=== PATIENT | female | born 1930 | race Caucasian/White ===

== ENCOUNTER 2017-11-18 06:55 | Inpatient (IN) | payer OTHER ==
[2017-11-11 13:55] VITALS: BMI 18.6
--- NOTE | 2017-11-17 10:55 | HP ---
[facility] - Chief Complaint Chief Complaint: right hip pain - Past Medical History Allergies/Adverse Reactions: Allergies Allergy/AdvReac Type Severity Reaction Status Date / Time No Known Allergies Allergy Verified 11/11/17 13:54 - Current Medications Current Medications: Home Medications Medication Instructions Recorded Cyproheptadine HCl 4 mg PO DAILY 11/11/17 Ferrous Sulfate [Iron] 325 mg PO DAILY 11/11/17 Meloxicam 15 mg PO DAILY 11/11/17 Verapamil HCl [Verapamil ER] 180 mg PO HS 11/11/17 [facility] Physical Exam - Physical Examination General Appearance: Well Nourished, Well Developed, Alert & Oriented x3 ENT: Clear Lung: Normal air movement Heart: Regular rate & rhythm Extremities: Other (right hip- + ttp, decr rom, nvi xrays show grade 4 djd) Neurological: Intact, Alert, Oriented Satellite Impression/Plan - Impression/Plan Impression: right hip djd Operative Procedure: right huey thr Date to be Performed: 11/18/17
[2017-11-18] MEDS ORDERED: CELECOXIB 200 MG CAPSULE PO ONE (07:09)
[2017-11-18] MEDS ORDERED: GABAPENTIN 300 MG CAPSULE (FP) PO ONE (07:09)
[2017-11-18] MEDS ORDERED: TRANEXAMIC ACID 1000 MG/10 ML VIAL IVPUSH ONE (07:09)
[2017-11-18] MEDS ORDERED: CEFAZOLIN 1 GM/D5W 1 GM/50 ML BAG IVPB ONE (07:09)
[2017-11-18] MEDS ORDERED: GABAPENTIN 300 MG CAPSULE (FP) ONE (07:11)
[2017-11-18] MEDS ORDERED: CELECOXIB 200 MG CAPSULE ONE (07:11)
[2017-11-18] MEDS ORDERED: VANCOMYCIN 1,000 MG VIAL (RESTRICTED TO ID ONLY) ONE (07:55)
[2017-11-18] MEDS ORDERED: ceFAZolin SODIUM 1 GM VIAL ONE ×2 (07:55→10:00)
[2017-11-18] MEDS ORDERED: MIDAZOLAM HCL 2 MG/2 ML SINGLE DOSE VIAL ONE (08:52)
[2017-11-18] MEDS ORDERED: EPINEPHrine/PF 1 MG/1 ML (1:1,000) AMPULE ONE (08:52)
[2017-11-18] MEDS ORDERED: DEXAMETHASONE SOD PHOSPHATE/PF 10 MG/ML SDV ONE (08:52)
[2017-11-18] MEDS ORDERED: LIDOCAINE 1% P/F 10 MG/ML VIAL ONE (08:53)
[2017-11-18] MEDS ORDERED: ROPIVACAINE HCL 0.5% 30ML VIAL ONE (08:53)
[2017-11-18] MEDS ORDERED: TRANEXAMIC ACID 1000 MG/10 ML VIAL ONE ×2 (10:00→10:57)
[2017-11-18] MEDS ORDERED: PROPOFOL 20 ML ONE (10:18)
[2017-11-18] MEDS ORDERED: ePHEDrine SULFATE 50 MG/1 ML AMPULE ONE (10:25)
[2017-11-18] MEDS ORDERED: MAG HYDROX/AL HYDROX/SIMETH 30 ML UNIT-DOSE CUP PO PRN (11:22)
[2017-11-18] MEDS ORDERED: ONDANSETRON 4 MG/2 ML VIAL IVPUSH PRN (11:22)
[2017-11-18] MEDS ORDERED: MAGNESIUM HYDROX 2400MG/30ML ORAL SUSPENSION 30 ML CUP PO PRN (11:22)
--- NOTE | 2017-11-18 11:24 | OP ---
Operative Note - Note: Operative Date: 11/18/17 (gurinder) Pre-Operative Diagnosis: right hip djd Operation: right huey thr Post-Operative Diagnosis: Same as Pre-op Surgeon: Jaron Chow Tearer: Mikhail Green Anesthesiologist/WHOLESALE BUYER: Tory Sun Anesthesia: Spinal, Local Specimens Removed: femoral head Estimated Blood Loss (mls): 100 Operative Report Dictated: Yes
[2017-11-18] MEDS ORDERED: LACTATED RINGERS SOLUTION 1,000 ML IV SCH (11:30)
[2017-11-18] MEDS ORDERED: oxyCODONE HCL 5 MG TABLET PO PRN ×2 (11:42)
[2017-11-18] MEDS ORDERED: ACETAMINOPHEN 325 MG TABLET (FP) ONE (12:30)
[2017-11-18] MEDS ORDERED: ACETAMINOPHEN 325 MG TABLET (FP) PO ONE (12:34)
--- NOTE | 2017-11-18 12:38 | OP ---
DATE OF OPERATION: 11/18/2017 PREOPERATIVE DIAGNOSIS: Degenerative joint disease, right hip. POSTOPERATIVE DIAGNOSIS: Degenerative joint disease, right hip. PROCEDURE: Right total hip replacement with robotic assisted navigation (Makoplasty). SURGEON: Jaron Chow MD PRODUCE LABORER: BRANDON Lane ANESTHESIA: Regional and spinal. CLOSURE: A Tritanium 54 Press-Fit acetabulum with 2 screws, an acetabular liner accepting a 36-mm head with a 10-degree lip, a No. 7 Press-Fit Accolade 2 femoral stem, and a standard 36-mm head, No. 1 Vicryl for capsule and fascia, 0 and 2-0 for subcutaneous, and 3-0 V-Lock for skin, 4-0 undyed Vicryl for pin sites. ESTIMATED BLOOD LOSS: Less than 100 mL. CONDITION: To recovery room in stable condition. DESCRIPTION OF OPERATIVE PROCEDURE: The patient was taken to the operating room on November 18, 2017. Regional and spinal anesthesia was administered by the anesthesiologist. IV Kefzol and TXA were administered prophylactically prior to the case. The patient was placed in the lateral decubitus position with all prominences well-padded. The right hip area was prepped in the usual sterile fashion. Three pins were placed through small stab incisions in between the 2 tables of the iliac crest. These pins were attached to the navigation array. Next, a posterolateral incision centered over the greater trochanter was incised. Hemostasis was achieved with Bovie cautery. Sharp dissection was carried down to the level of the fascia, which was opened the entire length of the incision, spreading the gluteus fibers in the direction of their origin. A Charnley retractor was placed in this layer. Care was taken not to repel the sciatic nerve. Short external rotators were detached off the insertion of the greater trochanteric and peeled off the capsule. A T capsulotomy was then performed. A checkpoint was placed in the trochanter. There was one placed in the inferior pole of the patella prior to the case. These points were registered prior to dislocating the hip with the navigation device. The hip was dislocated. The femoral neck was cut at the appropriate levels directed by the navigation device. Anterior repair with sterile retractors were placed around the acetabulum. Circumferential debridement of the labrum was performed. Checkpoint was malleted in the pelvis. The acetabulum was registered with the navigation device and confirmation of adequate navigation was performed by "popping the bubbles". The acetabulum was then reamed down to the appropriate level achieving good hemispherical surface. The 54 Tritanium cup was then malleted down into place achieving excellent fixation. Two screws were then placed for adjuvant fixation. An acetabular liner accepting a 36-mm head with 10-degree lip was malleted into place with the liner in the posterior superior quadrant. Next, our attention was directed to the femur. The proximal femur was prepared using a box chisel, serial broaches, and awls until a No. 7 stem achieved good wedge fit. A trial reduction with standard 36-mm head achieving equal limb lengths with bfubrb-fl-mowyyi flexion at 90 degrees of flexion with haedln-kk-ziblhy abduction and internal rotation, positive hang test, negative toe scoping, and good stability in external rotation and extension. The trial component was removed. The real component was then malleted into place. The head was cold-welded, and the hip was reduced. Range of motion stability and limb lengths was described earlier. The hip was copiously irrigated with antibiotic irrigation. Vancomycin powder was placed into the hip joint. The capsule was closed using No. 1. The fascia was closed with No. 1 Vicryl interrupted suture followed by 0 and 2-0 for subcutaneous and 3-0 V-Lock for the skin. Sterile pressure dressing was applied. The patient was placed in the supine position. Bilateral SCDs and an abduction pillow were applied. X-rays showed excellent position. The patient was transferred to the recovery room in stable condition. COMPLICATIONS: None. ESTIMATED BLOOD LOSS: Less than 100 mL. Sancho [id number]
[2017-11-18] MEDS ORDERED: ACETAMINOPHEN 1000 MG/100 ML VIAL (NON FORMULARY) IVPB ONE (13:00)
[2017-11-18] MEDS: CEFAZOLIN 1 GM/D5W 1 GRAM/50 ML BAG IVPB SCH (17:18)
[2017-11-18] MEDS ORDERED: ACETAMINOPHEN 325 MG TABLET (FP) PO PRN (18:30)
[2017-11-18] MEDS: VERAPAMIL HCL 180 MG E.R. TABLET (FP) PO SCH (21:48)
[2017-11-18] MEDS ORDERED: PT OWN MED DRAWER 7, Y5N ONE (21:48)
[2017-11-18] MEDS: SENNOSIDES/DOCUSATE COMBO (SENNA PLUS) TABLET (UD) PO SCH (21:49)
[2017-11-19] MEDS: CEFAZOLIN 1 GM/D5W 1 GRAM/50 ML BAG IVPB SCH (01:29)
[2017-11-19] MEDS: ASPIRIN 325 MG TABLET PO SCH (08:00)
[2017-11-19 08:16] LABS: HEMATOCRIT 32.2 % (32.4-45.2); HEMOGLOBIN 10.6 GM/dl (10.7-15.3); MEAN CELL VOLUME 91.1 fl (80-96); MEAN PLT VOLUME 8.8 fl (7.5-11.1); PLATELET COUNT 201 K/MM3 (134-434); RBC 3.53 M/mm3 (3.60-5.2); RDW 12.8 % (11.6-15.6); WHITE BLOOD COUNT 7.5 K/mm3 (4.0-10.8)
--- NOTE | 2017-11-19 09:51 | PN ---
Progress Note (short form) - Note Progress Note: Ortho Pt seen and examined s/p right huey thr pod #1 Selected Entries 11/19/17 05:48 Temperature 98.4 F Pulse Rate 75 Respiratory 18 Rate Blood Pressure 118/81 Laboratory Tests 11/19/17 07:30 WBC 7.5 Hgb 10.6 L Hct 32.2 L Plt Count 201 dressing c/d/i, calf soft, nt nvi a/p PT hip precautions dvt ppx pain control d/c home tomorrow if stable
[2017-11-19] MEDS ORDERED: PT OWN MED DRAWER 7, Y5N ONE (10:51)
[2017-11-19] MEDS: FERROUS SO4 325 MG TABLET (FP) PO SCH (10:58)
[2017-11-19] MEDS: MULTIVITAMINS (DAILY MVI) TABLET (FP) PO SCH (10:58)
[2017-11-19] MEDS: PANTOPRAZOLE 40 MG TABLET (FP) PO SCH (10:58)
[2017-11-19] MEDS: SENNOSIDES/DOCUSATE COMBO (SENNA PLUS) TABLET (UD) PO SCH ×2 (10:58→21:50)
[2017-11-19] MEDS: CYPROHEPTADINE HCL 4 MG TABLET PO SCH (10:59)
--- NOTE | 2017-11-19 14:25 | PN ---
Progress Note (short form) - Note Progress Note: 87F POD1 s/p right THR under spinal anesthetic with peripheral nerve blocks for post operative pain. Pt states that pain is well controlled. Pt does not report any anesthetic complications. AVSS. Sensory and motor function intact in bilateral lower extremities. Continue current regimen.
[2017-11-19] MEDS: VERAPAMIL HCL 180 MG E.R. TABLET (FP) PO SCH (23:29)
[2017-11-20 05:52] VITALS: BP 99/45; PULSE 89; TEMP 97.8
[2017-11-20] MEDS: ASPIRIN 325 MG TABLET PO SCH (07:55)
--- NOTE | 2017-11-20 08:23 | PN ---
Progress Note (short form) - Note Progress Note: Ortho Pt seen and examined s/p right huey thr pod #2 Selected Entries 11/20/17 05:50 Temperature 97.8 F Pulse Rate 89 Respiratory 20 Rate Blood Pressure 99/45 Laboratory Tests 11/20/17 07:23 WBC Pending Hgb Pending Hct Pending Plt Count Pending dressing c/d/i, calf soft, nt nvi a/p PT hip precautions dvt ppx pain control d/c home today f/u in 1 week
--- NOTE | 2017-11-20 08:23 | DS ---
Physical Examination Vital Signs: Vital Signs Temperature 97.8 F 11/20/17 05:50 Pulse Rate 89 11/20/17 05:50 Respiratory Rate 20 11/20/17 05:50 Blood Pressure 99/45 11/20/17 05:50 O2 Sat by Pulse Oximetry (%) 100 11/20/17 05:50 Discharge Summary Reason For Visit: OSTEOATHRITIS Procedures: Principal: s/p right huey thr Hospital Course: admitted for elective right huey thr, uneventful post-op, stable for d/c Condition: Good - Instructions Diet, Activity, Other Instructions: Post-op Instructions-Total Hip Replacement Call the office for a follow-up appointment in 1 week - [phone] Aspirin 325mg daily for 6 weeks. Pain medication was sent into your pharmacy. Apply Graduated Compression Stockings (TEDs) to both lower extremities- remove daily for hygiene ONLY Apply Sequential Compression Device (SCDs) to both Lower extremities remove for PT and hygiene ONLY Apply cold packs to affected area for 15 minutes every 2 hours. Physical Therapist will come to your home for the first 5 days. You will be set up with outpatient PT at your first post-operative visit. Patient may ambulate as tolerated-encourage self care (at least every 2-3 hours while awake) with walker or cane Maintain Aquacel (waterproof) dressing to operative wound (will be removed by surgeon at first office visit) Shower with Aquacel dressing in place-if Aquacel integrity compromised, remove and apply dry sterile dressing and notify Orthopedist. DO NOT SHOWER unless Orthopedists approves without Aquacel dressing CONTACT THE OFFICE FOR ANY CHANGE IN YOUR CONDITION (for example-fever greater than 102 degrees, excessive bleeding from operative site, purulent drainage, severe swelling or pain) GO TO THE EMERGENCY ROOM IF THERE IS A MEDICAL EMERGENCY Hip Precautions: * Keep a rolled towel under affected heel while in bed or chair (to keep knee in extension) * Dependent upon approach: * Posterior - do not cross legs; do not sit on low chairs or toilets. * If you have any questions, please do not hesitate to call the office - . Referrals: Jaron Chow MD [Staff Physician] - Disposition: VNS/HOME HEALTH CARE - Home Medications Comprehensive Discharge Medication List: Ambulatory Orders Cyproheptadine HCl 4 mg PO DAILY 11/11/17 Ferrous Sulfate [Iron] 325 mg PO DAILY 11/11/17 Verapamil HCl [Verapamil ER] 180 mg PO HS 11/11/17 Alendronate Na [Fosamax (Weekly)] 70 mg PO Q7D 11/18/17 Aspirin [ASA -] 325 mg PO DAILY@0800 tablet 11/18/17 Oxycodone HCl/Acetaminophen [Percocet 5-325 mg Tablet] 1 - 2 tab PO Q6H #50 tab MDD 8 11/18/17
[2017-11-20 08:37] LABS: HEMATOCRIT 31.1 % (32.4-45.2); HEMOGLOBIN 10.3 GM/dl (10.7-15.3); MCH 30.4 pg (25.7-33.7); MCHC 33.2 g/dl (32.0-36.0); MEAN CELL VOLUME 91.6 fl (80-96); MEAN PLT VOLUME 9.3 fl (7.5-11.1); PLATELET COUNT 168 K/MM3 (134-434); WHITE BLOOD COUNT 6.6 K/mm3 (4.0-10.8)
[2017-11-20] MEDS ORDERED: PT OWN MED DRAWER 7, Y5N ONE (10:50)
[2017-11-20] MEDS: SENNOSIDES/DOCUSATE COMBO (SENNA PLUS) TABLET (UD) PO SCH (10:55)
[2017-11-20] MEDS: MULTIVITAMINS (DAILY MVI) TABLET (FP) PO SCH (10:55)
[2017-11-20] MEDS: PANTOPRAZOLE 40 MG TABLET (FP) PO SCH (10:55)
[2017-11-20] MEDS: CYPROHEPTADINE HCL 4 MG TABLET PO SCH (10:55)
[2017-11-20] MEDS: FERROUS SO4 325 MG TABLET (FP) PO SCH (10:55)
--- NOTE | 2017-11-26 16:28 | PATH ---
Surgical Pathology Report Patient Name: HANK RICHARDSON Med. Rec. #: [id number] /Age/Gender: 1930 (Age: 87) / F Account: [id number] Location: [facility] Taken: 11/18/2017 Received: 11/18/2017 Reported: 11/26/2017 Physicians: Jaron Chow M.D. Specimen(s) Received RIGHT FEMORAL HEAD Clinical History Right hip osteoarthritis Final Diagnosis FEMORAL HEAD, RIGHT, TOTAL HIP REPLACEMENT: DEGENERATIVE JOINT DISEASE. Electronically Signed Prisca Sylvester M.D. Gross Description Received in formalin, labeled "right femoral head," is a 4.6 x 4.6 x 4.0 cm. femoral head with a 1.4 cm in length portion of femoral neck attached. The margin of resection is smooth. There is a 5.5 cm greatest dimension area of eburnation present. The remaining articular surface is lundberg-yellow and diffusely granular. The underlying trabecular bone is yellow and hard. A group sales representative section is submitted in one cassette, following decalcification. /11/19/[address] [facility]11/19/2017
== END 2017-11-20 11:36 | disposition home health service (06) | DRG 470 ==
LOC: FM/S 06:55
PROVIDERS: ADMIT Orthopaedic Surgery; ATTEND Orthopaedic Surgery
PROC: 8E0Y0CZ Robotic Assisted Procedure of Lower Extremity, Open Approach (ICD-10-PCS; 2017-11-18)
PROC: 0SR902Z Replacement of Right Hip Joint with Metal on Polyethylene Synthetic Substitute, Open Approach (ICD-10-PCS; principal; 2017-11-18 10:11)
DX: M16.11 Unilateral primary osteoarthritis, right hip (principal); I10 Essential (primary) hypertension; Z91.14 Patient's other noncompliance with medication regimen; Z87.891 Personal history of nicotine dependence
CPT/HCPCS: 36415; 73502-TC-RT; 85027; 88304-TC; 88311-TC; 94010; 94760; 97116-GP; 97162-GP

== ENCOUNTER 2020-05-04 17:32 | Inpatient (IN) | payer OTHER ==
[2020-05-04 18:13] VITALS: BMI 18.6
--- NOTE | 2020-05-04 18:36 | PDOC ---
History of Present Illness - General Chief Complaint: Altered Mental Status Stated Complaint: AMS Time Seen by Provider: 05/04/20 17:45 - History of Present Illness Initial Comments: Pt is a 89yo F with a PMH of HTN, hx of fall w/ICH in 2019, multiple UTIs, who presents with weakness. History was obtained from daughter as patient believes she is in hospital for seizures (Pt's daughter states that she did not have a seizure or history of seizures). Daughter states that 4 days ago, pt was more tired than usual and has since had worsening confusion and weakness. Today, she was found on the floor by granddaughter. Pt states that she purposefully laid down on the floor because it was more comfortable than the couch. Denies f/c, diaphoresis, n/v, chest pain, SOB, abdominal pain. PCP: [facility] PMH: HTN, osteoporosis PSHx: hip replacement, appendectomy Meds: verapamil, meloxicam All: NKDA tPA Exclusion Checklist 0-3hr - Time Elapsed Date last known well: 05/01/20 - Thrombolytic Therapy Candidate Is the patient eligible for Thrombolytic Therapy?: No - Ineligibility reason(s) Reasons No tPA given: Outside of window - delayed arrival, See reason(s) noted above (neuro intact) NIH Stroke Scale - Last Known Well Date/Time & Onset Date Last Known Well: 05/01/20 - Initial Evaluation Level of consciousness: Alert Ask patient the month and their age: Answers one correctly Ask patient to open & close eyes; make fist and let go: Obeys both correctly Best gaze (horizontal eye movement): Normal Visual field testing: No visual field loss Facial paresis (Show teeth/raise eyebrows/close eyes tight): Normal symmetrical movement Motor Function: Left Arm: Normal Motor Function: Right Arm: Normal (extends arm 90 (or 45) degrees for 10 seconds without drift Motor Function: Left Leg: Normal (extends leg 30 degrees for 5 seconds without drift) Motor Function: Right Leg: Normal (extends leg 30 degrees for 5 seconds without drift) Limb Ataxia: No ataxia Sensory(Use pinprick test arms,legs,trunk,face/side to side): Normal Best language (Describe picture, name items, read sentences): No Aphasia Dysarthria (read several words): Normal articulation Extinction and Inattention: No abnormality - Total Score NIH Stroke Scale Score: 1 Past History - Medical History Allergies/Adverse Reactions: Allergies Allergy/AdvReac Type Severity Reaction Status Date / Time No Known Allergies Allergy Verified 05/04/20 18:12 Home Medications: Ambulatory Orders Verapamil HCl [Verapamil ER] 180 mg PO DAILY 11/11/17 Alendronate Na [Fosamax (Weekly)] 70 mg PO Q7D 11/18/17 Meloxicam [Mobic (Nf) -] 0 mg PO DAILY PRN 05/04/20 Anemia: No Asthma: No Cancer: No Cardiac Disorders: No CVA: No COPD: No CHF: No Dementia: No Diabetes: No GI Disorders: No Disorders: No HTN: Yes Hypercholesterolemia: No Liver Disease: No Seizures: No Thyroid Disease: No - Surgical History Abdominal Surgery: Yes (OPEN- A/P) Appendectomy: Yes (OPEN) Cardiac Surgery: No Cholecystectomy: No Lung Surgery: No Neurologic Surgery: No Orthopedic Surgery: Yes (LEFT KNEE ARTHROSCOPY) - Psycho-Social/Smoking History Smoking History: Former smoker Have you smoked in the past 12 months: No If you are a former smoker, when did you quit?: 3 Review of Systems - Review of Systems Able to Perform ROS?: Yes Comments:: CONSTITUTIONAL:reports generalized weakness and loss of appetiet; denies fever, chills, diaphoresis HEENT:denies change in vision or hearing CARDIOVASCULAR:denies chest pain, syncope, lightheadedness RESPIRATORY:denies cough, shortness of breath, wheezing GASTROINTESTINAL: denies abdominal pain, nausea, vomiting, diarrhea, co nstipation, melena, hematochezia GENITOURINARY:denies dysuria, frequency, urgency, hematuria, flank pain, genital pain HEMATOLOGIC/IMMUNOLOGIC:denies easy bleeding, easy bruising ENDOCRINE: denies heat intolerance, cold intolerance NEUROLOGIC:Reports: unsteady gait, mental status changes; denies headache, loss of consciousness, dizziness, bladder or bowel incontinence *Physical Exam - Physical Exam General: AAOX3 (wrong date), in no acute distress Head: normocephalic, atraumatic Eyes: PERRL, EOMI, anicteric sclera, conjunctiva clear ENT: hearing grossly normal, Moist mucous membranes Neck: supple, normal ROM Lung: equal breath sounds b/l, CTA b/l, no crackles, wheezes; no distress, speaks full sentences Heart: irregular rhythm, tachycardic, no murmurs, rubs, gallops Abdomen: soft, non tender, normoactive bowel sounds, no guarding, rebound, masses Extremities: normal ROM, no edema, no erythema or tenderness, DP/PT pulses 2+ and symmetric, no clubbing, cyanosis Neuro: CN2-12 grossly intact, moves all extremities, normal speech, sensation intact Skin: warm, dry, no rashes or lesions noted ED Treatment Course - LABORATORY CBC & Chemistry Diagram: 05/04/20 18:00 Medical Decision Making - Medical Decision Making Ms. Bose is a 89yo F with PMH HTN, hx of fall w/ICH in 2019, hx of UTIs, who presents with weakness Vital Signs Temp Pulse Resp BP Pulse Ox 97.8 F 112 H 18 136/83 97 05/04/20 18:10 05/04/20 18:10 05/04/20 18:10 05/04/20 18:10 05/04/20 18:10 DDx: stroke, AFib, UTI, electrolyte abnormality Plan: labs, EKG, CXR, CT head and C spine, rate control EKG: Afib with RVR; HR 109, QRS 60ms CHADSVASC [address] Louis Discharge - Discharge Information Problems reviewed: Yes Clinical Impression/Diagnosis: Weakness - Follow up/Referral Referrals: Zee Purvis MD [Primary Care Provider] - - Patient Discharge Instructions - Post Discharge Activity
[2020-05-04] MEDS ORDERED: LACTATED RINGERS SOLUTION 1000 ML INFUS.BAG IV ONE (18:51)
[2020-05-04] MEDS ORDERED: dilTIAZem HCL 50 MG/10 ML - 10 ML VIAL IVPUSH ONE (19:08)
--- NOTE | 2020-05-04 19:12 | PDOC ---
*Physical Exam - Vital Signs Last Vital Signs Temp Pulse Resp BP Pulse Ox 97.8 F 112 H 18 136/83 97 05/04/20 18:10 05/04/20 18:10 05/04/20 18:10 05/04/20 18:10 05/04/20 18:10 ED Treatment Course - LABORATORY CBC & Chemistry Diagram: 05/04/20 20:49 05/04/20 18:00 - Medications Given in the ED: ED Medications Discontinued Medications Generic Name Dose Route Start Last Admin Trade Name Sae PRN Reason Stop Dose Admin Lactated Ringer's 500 ml 05/04/20 18:51 05/04/20 18:52 Lactated Ringers Solution IV 05/04/20 18:52 500 ml ONCE ONE Administration Medical Decision Making - Medical Decision Making 05/04/20 19:36 signed out from day team progressive weakness x days; NIHSS 1 found on ground; unknown LOC. [] f/u labs, imaging [] new onset afib, CHADSVASC2 = 6; 10mg IVPUSH diltiazem, f/u [] cards c/s [] admit 05/04/20 20:00 BUN 31 Cr nl 05/04/20 20:30 R sided infiltrate on CXR vs prior obtain BCX CTX, Azithro. 05/04/20 20:[address] Matthews - hold given ICH h/o, PO dilt 30mg q6h HR from 120s to 100-110 s/p diltiazem push Will give 30mg PO dilt admit Discharge - Discharge Information Problems reviewed: Yes Clinical Impression/Diagnosis: Weakness, New onset a-fib, Dizziness Condition: Guarded - Follow up/Referral - Patient Discharge Instructions - Post Discharge Activity
[2020-05-04 19:15] LABS: INR 1.06 (0.83-1.09); PROTHROMBIN TIME (PATIENT) 12.5 SEC (9.7-13.0)
--- NOTE | 2020-05-04 19:31 | PDOC ---
Documentation entered by Katrin De La Garza SCRIBE, acting as scribe for Sachi Raygoza DO. Sachi Raygoza DO: This documentation has been prepared by the paulae, Katrin De La Garza SCRIBE, under my direction and personally reviewed by me in its entirety. I confirm that the documentation accurately reflects all work, treatment, procedures, and medical decision making performed by me. 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 Per patient's mother, the patient fell last year and had a brain bleed (treated at [facility] brain trauma unit and went to [facility] for therapy) and has since then had mental statues issues. At baseline patient is alert and oriented x4. Per mother, yoel gallo does not normally sleep during the day but spent all day Friday sleeping and has been feeling week along with decrease in appetite - symptoms getting worse. Earlier today, the patient was found lying on the floor - did not fall or pass out but this prompted granddaughter to call EMS. Patient does not use a walker but mother said patient was "wobbly" yesterday. Patient denies: hitting head today, fever, chills, sweating, nausea, vomiting, neck pain, SOB, coughing, wheezing, chest pain, palpitations, back pain, abdominal pain, any urinary issues. Allergies: NKDA PCP: Dr. Zee Purvis - Physicial Exam PE: 05/04/20 19:15 GENERAL: Awake, alert, and oriented, in no acute distress HEAD: No signs of trauma EYES: PERRLA, EOMI, sclera anicteric, conjunctiva clear ENT: +Dry mucous membranes. Auricles normal inspection, hearing grossly normal, nares patent, oropharynx clear without exudates. NECK: Normal ROM, supple, no lymphadenopathy, JVD, or masses LUNGS: Breath sounds equal, clear to auscultation bilaterally. No wheezes, and no crackles HEART: +Irregularly irregulat heart rate. + Tachycardic. Normal S1 and S2, no murmurs, rubs or gallops ABDOMEN: Soft, nontender, normoactive bowel sounds. No guarding, no rebound. No masses EXTREMITIES: Normal range of motion, no edema. No clubbing or cyanosis. No cords, erythema, or tenderness NEUROLOGICAL: No external signs of trauma. No CT tenderness. Cranial nerves II through XII grossly intact. Normal speech. No back deformities. SKIN: Warm, Dry, normal turgor, no rashes or lesions noted. - Medical Decision Making 05/04/20 19:25 a/p: 89yo female with a 1 week hx of weakness and dizziness, today she states she willingly sat down on the floor -pt denies falls, head injury, or loc -pt denies seizure activity -pt states walking in her living room and sat down on the floor -pt denies cp/sob -c/o weakness and dizziness -neuro intact -new onset afib w rvr upon arrival -labs, tsh, trop, ekg, cxr, head ct ordered -will need admission for cards eval -NIHSS 0 -no tpa given neuro intact and no symptoms currently -suspect dizziness secondary to new onset afib and weakness from new onset afib -will monitor on tele and will need admission 05/04/20 20:04 trop neg tsh normal electrolytes reviewed and stable 05/04/20 20:27 R sided pna on cxr cultures and abx ordered 05/04/20 20:[address] neg resident discussed the case with Dr. Matthews from cards re new onset afib 05/04/20 21:12 ua neg labs reviewed no elevated wbc resident discussed the case with Dr. Purvis who accepts pt to service 05/04/20 21:13 Heart Score/ECG Review - ECG Intrepretation Comment:: 05/04/20 19:30 afib at 109 with rvr, nl axis, no acute st/t wave findings Discharge - Discharge Information Problems reviewed: Yes Clinical Impression/Diagnosis: Weakness, New onset a-fib, Dizziness Condition: Guarded - Admission Yes - Follow up/Referral - Patient Discharge Instructions - Post Discharge Activity
[2020-05-04 19:36] LABS: ALBUMIN 3.4 g/dl (3.4-5.0); ALK PHOS 89 U/L (45-117); ANION GAP 8 MMOL/L (8-16); BILIRUBIN,TOTAL 0.7 mg/dL (0.2-1); CALCIUM 9.4 mg/dL (8.5-10.1); CHLORIDE 99 mmol/L (98-107); CO2 25 mmol/L (21-32); CREATININE 0.9 mg/dL (0.55-1.3); GLUCOSE,RANDOM 112 mg/dL (74-106); MAGNESIUM 2.2 mg/dL (1.8-2.4); POTASSIUM 4.7 mmol/L (3.5-5.1); SGOT/AST 40 U/L (15-37); SGPT/ALT 53 U/L (13-61); SODIUM 133 mmol/L (136-145); TOT PROT 6.6 g/dl (6.4-8.2)
[2020-05-04] MEDS ORDERED: dilTIAZem HCL 125 MG/25 ML - 25 ML VIAL ONE (20:16)
[2020-05-04] MEDS ORDERED: AZITHROMYCIN IVPB 500 MG in DEXTROSE 5%-WATER - 250 ML IVPB ONE (20:21)
[2020-05-04] MEDS ORDERED: CEFTRIAXONE 1 GM in DEXTROSE 5%-WATER - 100 ML IVPB ONE (20:21)
[2020-05-04 20:22] LABS: BASO % 0.5 % (0-2.0); EOS % 0.3 % (0-4.5); HEMATOCRIT 32.7 % (32.4-45.2); HEMOGLOBIN 11.1 GM/dL (10.7-15.3); LYMPH % 10.4 % (8-40); MCH 30.8 pg (25.7-33.7); MCHC 33.9 g/dl (32.0-36.0); MEAN CELL VOLUME 90.9 fl (80-96); MEAN PLT VOLUME 8.9 fl (7.5-11.1); MONO % 8.3 % (3.8-10.2); NEUT % 80.5 % (42.8-82.8); PLATELET COUNT 239 K/MM3 (134-434); RDW 14.6 % (11.6-15.6)
[2020-05-04] MEDS ORDERED: dilTIAZem HCL 30 MG TABLET PO ONE (20:39)
[2020-05-04 21:00] LABS: BASO % 0.5 % (0-2.0); EOS % 0.5 % (0-4.5); HEMATOCRIT 33.8 % (32.4-45.2); HEMOGLOBIN 11.4 GM/dL (10.7-15.3); LYMPH % 11.9 % (8-40); MCH 30.7 pg (25.7-33.7); MCHC 33.6 g/dl (32.0-36.0); MEAN CELL VOLUME 91.2 fl (80-96); MEAN PLT VOLUME 8.6 fl (7.5-11.1); MONO % 8.4 % (3.8-10.2); NEUT % 78.7 % (42.8-82.8); PLATELET COUNT 245 K/MM3 (134-434); RDW 14.7 % (11.6-15.6); WHITE BLOOD COUNT 7.9 K/mm3 (4.0-10.0)
[2020-05-04 21:03] LABS: PH,URINE 5.5 (5.0-8.0); URINE APPEARANCE CLEAR; URINE BILIRUBIN NEGATIVE (NEGATIVE); URINE COLOR YELLOW; URINE GLUCOSE (UA) NEGATIVE (NEGATIVE); URINE KETONE NEGATIVE (NEGATIVE); URINE LEUK ESTERASE NEGATIVE (NEGATIVE); URINE NITRITE NEGATIVE (NEGATIVE); URINE PROTEIN NEGATIVE (NEGATIVE); URINE UROBILINOGEN 0.2 mg/dL (0.2-1.0)
[2020-05-04] MEDS ORDERED: dilTIAZem HCL 30 MG TABLET ONE (21:36)
[2020-05-04] MEDS ORDERED: AZITHROMYCIN IVPB 500 MG/250 ML BAG IVPB ONE (21:36)
[2020-05-04] MEDS ORDERED: CEFTRIAXONE 1 GM/50 ML BAG ONE (21:36)
[2020-05-05] MEDS ORDERED: dilTIAZem HCL 30 MG TABLET ONE ×2 (06:05→10:29)
[2020-05-05] MEDS: dilTIAZem HCL 30 MG TABLET PO SCH ×3 (06:15→17:31)
--- NOTE | 2020-05-05 06:19 | CON.CARD ---
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 Per patient's mother, the patient fell last year and had a brain bleed (treated at [facility] brain trauma unit and went to [facility] for therapy) and has since then had mental statues issues. At baseline patient is alert and oriented x4. Per mother, patient does not normally sleep during the day but spent all day Friday sleeping and has been feeling week along with decrease in appetite - symptoms getting worse. Earlier today, the patient was found lying on the floor - did not fall or pass out but this prompte d granddaughter to call EMS.Patient does not use a walker but mother said patient was "wobbly" yesterday." On my history, she denies CP/SOB/Palps but she has no idea why she is here. Found to have infiltrate on CXR and was in AF w/ RVR on admission which responded to Cardizem. 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) Pulmonary: No: Asthma, Bronchitis, Cancer, COPD, O2 Dependent, Pneumonia, Previously Intubated, Pulmonary Embolus, Pulmonary Fibrosis, Sleep Apnea, Other Gastrointestinal: No: Ascites, Cancer, Constipation, Crohn's Disease, Diverticulitis, Diverticulosis, Esophageal Varices, Gastritis, GERD, GI Bleed, Hemorrhoids, Hiatal Hernia, Inflamatory Bowel Disease, Irritable Bowel Disease, Pancreatitis, Peptic Ulcer Disease, Ulcerative Colitis, Other Hepatobiliary: No: Cirrhosis, Cholelithiasis, Cholecystitis, Choledocholithiasis, Hepatitis A, Hepatitis B, Hepatitis C, Other Renal/: No: Renal Failure, Renal Inusuff, BPH, Cancer, Hematuria, H emodialysis, Neurogenic Bladder, Renal Calculi, UTI, Other Reproductive: No: Ectopic , Endometriosis, Fibroids, PID, Polycystic Ovary Syndrome, Postmenopausal, Other Heme/Onc: No: Anemia, B12 Deficiency, Bleeding Disorder, Cancer, Current Ch emotherapy, Current Radiation Therapy, Hemochromatosis, Hypercoaguable State, Myeloproliferative Synd, Sickle Cell Disease, Sickle Cell Trait, Thrombocytopenia, Other Infectious Disease: Yes: Other (UTI) Psych: No: Addictions, Anxiety, Bipolar, Depression, Panic, Psychosis, Schizophrenia, Other Musculoskeletal: No: Bursitis, Chronic low back pain, Hemiparesis, Hemiplegia, Osteoarthritis, Paraplegia, Other Rheumatology: No: Fibromyalgia, Gout, Lupus, Rheumatoid Arthritis, Sarcoidosis, Vasculitis, Other ENT: No: Allergic Rhinitis, Sinusitis, Other Endocrine: No: Krish's Disease, Marisabel's Disease, Diabetes Insipidus, Diabetes Mellitus, Hyperparathyroidism, Hyperthyroidism, Hypothyroidism, Osteopenia, SIADH, Other Dermatology: No: Basal Cell, Cellulitis, Eczema, Melanoma, Psoriasis, Squamous Cell, Other - Past Surgical History Past Surgical History: No: None, AAA Repair, AICD, Amputation, Appendectomy, Arthrosocopy, AV Fistula/Graft, Bariatric Surgery, Breast Biopsy, Bypass, CABG, Carotid Endarterectomy, Cataract Removal, Cholecystectomy, Colectomy, Colonoscopy, Colostomy, Craniotomy, , Cystectomy, Hernia Repair, Hysterectomy, Ileal Conduit, Ileosotomy, Joint Replacement, Kidney Transplant, Laminectomy, Liver Transplant, Mastectomy, Nephrectomy, Oopherectomy, Orchiectomy, Permanent Pacemaker, Prostatectomy, Splenectomy, Stent, Thoracotomy, TURP, Tonsillectomy, Tubal Ligation, Upper Endoscopy, Valve Replacement, Vasectomy, Vein Stripping/Ligation - Alcohol/Substance Use Hx Alcohol Use: Yes (1 GLASS WINE DAILY) - Smoking History Smoking history: Former smoker Have you smoked in the past 12 months: No If you are a former smoker, when did you quit?: 1952 - Social History History of Recent Travel: No Home Medications - Allergies Allergies/Adverse Reactions: Allergies Allergy/AdvReac Type Severity Reaction Status Date / Time No Known Allergies Allergy Verified 05/04/20 18:12 - Home Medications Home Medications: Ambulatory Orders Verapamil HCl [Verapamil ER] 180 mg PO DAILY 11/11/17 Alendronate Na [Fosamax (Weekly)] 70 mg PO Q7D 11/18/17 Meloxicam [Mobic (Nf) -] 0 mg PO DAILY PRN 05/04/20 Family Medical History Family History: Unremarkable (not pertinent to this presentation) Review of Systems Findings/Remarks: see HPI - Review of Systems Constitutional: reports: Weakness Eyes: reports: No Symptoms HENT: reports: No Symptoms Neck: reports: No Symptoms Cardiovascular: reports: No Symptoms Respiratory: reports: No Symptoms Gastrointestinal: reports: No Symptoms Genitourinary: reports: No Symptoms Breasts: reports: No Symptoms Reported Musculoskeletal: reports: No Symptoms Integumentary: reports: No Symptoms Neurological: reports: No Symptoms Endocrine: reports: No Symptoms Hematology/Lymphatic: reports: No Symptoms Psychiatric: reports: No Symptoms - Risk Factors Known Risk Factors: Yes: Hypertension Vital Signs: Vital Signs Temperature 98.2 F 05/05/20 03:00 Pulse Rate 113 H 05/05/20 06:13 Respiratory Rate 18 05/05/20 06:13 Blood Pressure 130/102 H 05/05/20 06:13 O2 Sat by Pulse Oximetry (%) 98 05/05/20 06:13 Constitutional: Yes: No Distress, Calm, Poor Hygeine Eyes: Yes: EOM Intact Respiratory: Yes: CTA Bilaterally Gastrointestinal: Yes: Soft (nt) Cardiovascular: Yes: Pulse Irregular JVD: No Carotid Bruit: No PMI: Non-Displaced Edema: No Peripheral Pulses WNL: Yes Neurological: Yes: Confusion ...Motor Strength: WNL - Other Data Labs, Other Data: CBC, BMP 05/04/20 20:49 05/04/20 18:00 INR, PTT INR 1.06 (0.83-1.09) 05/04/20 18:00 Troponin, BNP 05/04/20 18:00 Troponin I < 0.02 Troponin, BNP 05/04/20 18:00 Troponin I < 0.02 AF w/ RVR, lowish voltage Echo: Pending Imaging - Results Chest X-ray: Image Reviewed (no acute infiltrate) EKG: Image Reviewed Assessment/Plan IMP: Suspected PNA New Onset AF w/ RVR History of intracranial hemorrhage REC: 1. Rate control with Cardizem 30mg PO q 6H, monitor telemetry for new onset AF for 24 hours, titrate meds as needed to achieve mean HR < 100bpm 2. Defer AC for now in light of prior intracranial bleed, falls. Will reach out to family to discuss details of prior ICH, falls history etc in order to decide re further management of stroke risk. Low dose ASA 81mg will likely be ok. 3. Echo 4. Treatment of suspected PNA as per primary team: cultures pending, started on Ceftriaxone/ Azithro Thank you.
--- NOTE | 2020-05-05 08:41 | EKG ---
Test Reason : Blood Pressure : / mmHG Vent. Rate : 109 BPM Atrial Rate : 326 BPM P-R Int : 000 ms QRS Dur : 060 ms QT Int : 342 ms P-R-T Axes : 000 049 060 degrees QTc Int : 460 ms POOR DATA QUALITY, INTERPRETATION MAY BE ADVERSELY AFFECTED ATRIAL FIBRILLATION WITH RAPID VENTRICULAR RESPONSE LOW VOLTAGE QRS ABNORMAL ECG NO PREVIOUS ECGS AVAILABLE Confirmed by JUSTYN PATEL MD ([id number]) on 05/05/2020 8:41:23 AM Referred By: Confirmed By:JUSTYN PATEL MD
[2020-05-05] MEDS ORDERED: AZITHROMYCIN 250 MG TABLET PO SCH (10:00)
--- NOTE | 2020-05-05 10:12 | ECHO ---
Version: 1 Name: HANK RICHARDSON Exam: Adult Echocardiogram Study Date: 05/05/2020, 8:37 AM Age: 89 Years MMode/2D Measurements & Calculations IVSd: 1.13 cm LVIDs: 2.43 cm LVIDd: 3.4 cm LVPWd: 1.05 cm LVOT diam: 2.01 cm Ao root diam: 3.4 cm LA dimension: 3.0 cm Doppler Measurements & Calculations MV E max jesse: 130.0 cm/sec Med E/e': 14.9 MV A max jesse: 53.3 cm/sec Med Peak E' Jesse: 8.7 cm/sec MV E/A: 2.44 Lat E/e': 12.6 Lat Peak E' Jesse: 10.3 cm/sec MR max P.8 mmHg Ao max P.5 mmHg Ao V2 max: 137.0 cm/sec AI P1/2t: 341.6 msec TR max jesse: 276.9 cm/sec TR max P.8 mmHg Left Ventricle There is borderline concentric left ventricular hypertrophy. Ejection Fraction = 50-55%. Right Ventricle The right ventricle is normal in size and function. Atria The left atrium is severely dilated. The right atrium is mildly dilated. Mitral Valve There is mild mitral valve thickening. There is no mitral valve stenosis. There is moderate mitral regurgitation. Tricuspid Valve The tricuspid valve is not well visualized, but is grossly normal. There is moderate tricuspid regur gitation. Right ventricular systolic pressure is elevated at 30-40mmHg. There is mild pulmonary hypertension. Aortic Valve There is mild aortic sclerosis.;. No hemodynamically significant valvular aortic stenosis. Moderate aortic regurgitation. Pulmonic Valve The pulmonic valve is not well seen, but is grossly normal. There is no pulmonic valvular stenosis. Great Vessels The aortic root is normal size. Severely dilated inferior vena cava. Pericardium/Pleura There is no pericardial effusion. Summary Statements Ejection Fraction = 50-55%. The right ventricle is normal in size and function. The left atrium is severely dilated. There is moderate mitral regurgitation. There is moderate tricuspid regurgitation. Right ventricular systolic pressure is elevated at 30-40mmHg. There is mild pulmonary hypertension. Moderate aortic regurgitation. Severely dilated inferior vena cava MD Trujillo *Cassie 05/05/2020, 10:12 AM Ordering Physician: Ronnie Matthews Performed By: Xenia Cartwright
[2020-05-05] MEDS ORDERED: ASPIRIN COATED 81 MG TABLET.EC ONE (10:28)
[2020-05-05] MEDS ORDERED: CEFAZOLIN 1 GM/D5W 1 GM/50 ML BAG ONE (10:29)
[2020-05-05] MEDS ORDERED: AZITHROMYCIN IVPB 500 MG/250 ML BAG IVPB ONE (10:29)
[2020-05-05] MEDS: ASPIRIN COATED 81 MG TABLET.EC PO SCH (10:39)
[2020-05-05] MEDS: CEFAZOLIN 1 GM in DEXTROSE 5%-WATER - 50 ML IVPB SCH ×4 (10:39→17:31)
[2020-05-05] MEDS ORDERED: dilTIAZem HCL 50 MG/10 ML - 10 ML VIAL IVPUSH ONE (10:59)
[2020-05-05] MEDS ORDERED: AZITHROMYCIN 500 MG TABLET ONE (12:30)
[2020-05-05] MEDS: AZITHROMYCIN 500 MG TABLET PO SCH (12:37)
--- NOTE | 2020-05-05 12:48 | HP ---
DATE OF ADMISSION: 05/04/2020 HISTORY OF PRESENT ILLNESS: She is an 89-year-old female who was brought to the emergency room yesterday with complaints of weakness x4 days. Other significant history, the patient had hip replacement in 2018, history of TB in the past. In the emergency room she was noted to have right lower lobe infiltrate so was admitted. For her hypertension, she is on verapamil 180 mg daily, alendronate, Fosamax 70 mg weekly, and Mobic for arthritis. She has grown up children. She lives with her . PHYSICAL EXAMINATION: General: She is awake, alert, and talking. Vital Signs: Her blood pressure is 130/80, pulse 72, respirations 20, temperature 98.2. HEENT: Unremarkable. Neck: Supple. Lungs: A few rales and on the right base. Heart: S1 and S2 normal. No S3 or S4. Abdomen: Soft. Extremities: Legs no edema. Neurologic: Grossly normal. LABORATORY DATA: Chest x-ray shows an infiltrate in the right base. CT of the head was done which was negative. CT of the neck is negative. The lab report; WBC 7.9, hemoglobin 11.7, platelets 245. Chemistry; electrolytes are normal, sodium 132. Lactic acid is normal at 1.3. Liver functions are normal. TSH is normal. IMPRESSION: Right lower lobe pneumonia. PLAN: IV antibiotics. Continue her present medications and follow. PING BARRON M.D. [id number]
[2020-05-05] MEDS ORDERED: ceFAZolin SODIUM 1 GM VIAL ONE (16:51)
[2020-05-05] MEDS ORDERED: DEXTROSE 5%-WATER - 50 ML IVPB ONE (16:51)
[2020-05-05] MEDS: METOPROLOL TARTRATE 50 MG TABLET (FP) PO ONE (17:32)
[2020-05-06] MEDS: dilTIAZem HCL 30 MG TABLET PO SCH ×2 (00:09→05:35)
[2020-05-06] MEDS ORDERED: DEXTROSE 5%-WATER - 50 ML IVPB ONE ×3 (01:03→18:27)
[2020-05-06] MEDS ORDERED: ceFAZolin SODIUM 1 GM VIAL ONE ×3 (01:03→18:27)
[2020-05-06] MEDS: CEFAZOLIN 1 GM in DEXTROSE 5%-WATER - 50 ML IVPB SCH ×3 (02:58→18:28)
--- NOTE | 2020-05-06 06:48 | PN ---
Progress Note, Physician Chief Complaint: weakness History of Present Illness: denies confusion, weakness, palpitations, sob, cp - Current Medication List Current Medications: Active Medications Aspirin (Ecotrin -) 81 mg PO DAILY [facility] Last Admin: 05/05/20 10:39 Dose: 81 mg Documented by: Azithromycin (Zithromax) 500 mg PO DAILY [facility] Stop: 05/07/20 10:01 Last Admin: 05/05/20 12:37 Dose: 500 mg Documented by: Diltiazem HCl (Cardizem -) 30 mg PO Q6HPO [facility] Last Admin: 05/06/20 05:35 Dose: 30 mg Documented by: Cefazolin Sodium 1 gm/ (Dextrose) 50 mls @ 100 mls/hr IVPB Q8H-IV [facility] Last Admin: 05/06/20 02:58 Dose: 100 mls/hr Documented by: - Objective Vital Signs: Vital Signs Temperature 98.9 F 05/06/20 02:00 Pulse Rate 125 H 05/06/20 02:00 Respiratory Rate 20 05/06/20 02:00 Blood Pressure 120/91 05/06/20 02:00 O2 Sat by Pulse Oximetry (%) 95 05/05/20 22:00 Constitutional: Yes: Well Nourished, No Distress, Calm Cardiovascular: Yes: Regular Rate and Rhythm, JVD, S1, S2. No: Gallop, Murmur Respiratory: Yes: Regular, Wheezes (L base). No: Accessory Muscle Use Extremities: No: Cold Edema: No Neurological: Yes: Alert, Oriented Psychiatric: No: Agitated Labs: CBC, BMP 05/04/20 20:49 05/04/20 18:00 INR, PTT INR 1.06 (0.83-1.09) 05/04/20 18:00 Assessment/Plan Echo: EF 50-55%. nl RV. severe LAE, mild HERMINIO. mod AI/MR/TR. RVSP 30-40. severely dilated IVC tele: AF 140s yest evening-->90s-100s mostly since IMP: Suspected PNA (R hilar and base increased markings, no effusion)--presented with lethargy, weakness New Onset AF w/ RVR History of intracranial hemorrhage REC: 1. Rate control: did not respond to diltiazem 30mg, metoprolol 50 given yest evening with good effect. start metopr succinate 50 qd. on verapamil po now as well (home med?)--continue 2. 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 This, plus frailty, makes risks of AC > benefits. ASA only 3. Treatment of suspected PNA as per primary team: cultures pending, started on Ceftriaxone/ Azithro 4. BNP 5000, dilated IVC on echo, mild pulm HTN with moderate AI/MR/TR. JVD on exam--suspect component of HFpEF here. start lasix 40 po qd
--- NOTE | 2020-05-06 09:15 | PN ---
Progress Note, Physician Chief Complaint: Admitted with Rt LL pneumonia Was agitated all night This AM she is sleeping - Current Medication List Current Medications: Active Medications Aspirin (Ecotrin -) 81 mg PO DAILY [facility] Last Admin: 05/05/20 10:39 Dose: 81 mg Documented by: Azithromycin (Zithromax) 500 mg PO DAILY [facility] Stop: 05/07/20 10:01 Last Admin: 05/05/20 12:37 Dose: 500 mg Documented by: Cefazolin Sodium 1 gm/ (Dextrose) 50 mls @ 100 mls/hr IVPB Q8H-IV [facility] Last Admin: 05/06/20 02:58 Dose: 100 mls/hr Documented by: Metoprolol Succinate (Toprol Xl -) 50 mg PO DAILY [facility] - Objective Vital Signs: Vital Signs Temperature 98.0 F 05/06/20 06:00 Pulse Rate 99 H 05/06/20 06:00 Respiratory Rate 18 05/06/20 06:00 Blood Pressure 133/68 05/06/20 06:00 O2 Sat by Pulse Oximetry (%) 99 05/06/20 06:00 Constitutional: Yes: Anxious, Mild Distress Eyes: Yes: WNL HENT: Yes: WNL Neck: Yes: WNL Cardiovascular: Yes: WNL, Tachycardia Respiratory: Yes: WNL Gastrointestinal: Yes: Normal Bowel Sounds ...Rectal Exam: Yes: Deferred Genitourinary: Yes: WNL Musculoskeletal: Yes: Muscle Weakness Peripheral Pulses WNL: No ...Motor Strength: WNL Labs: CBC, BMP 05/04/20 20:49 05/04/20 18:00 INR, PTT INR 1.06 (0.83-1.09) 05/04/20 18:00 Assessment/Plan Add verapamil 180 mg PO daily Haldol .5 mg HS PRN
[2020-05-06] MEDS ORDERED: HALOPERIDOL LACTATE 5 MG/ML IM PRN (09:16)
[2020-05-06] MEDS ORDERED: PT OWN MED DRAWER 7, Y5N ONE ×2 (10:32→21:24)
[2020-05-06] MEDS: VERAPAMIL HCL 120 MG TABLET PO SCH ×2 (10:39→21:27)
[2020-05-06] MEDS: ASPIRIN COATED 81 MG TABLET.EC PO SCH (10:39)
[2020-05-06] MEDS: AZITHROMYCIN 500 MG TABLET PO SCH (10:39)
[2020-05-06] MEDS: FUROSEMIDE 40 MG TABLET (FP) PO SCH (14:54)
[2020-05-07] MEDS ORDERED: DEXTROSE 5%-WATER - 50 ML IVPB ONE ×2 (00:18→17:13)
[2020-05-07] MEDS ORDERED: ceFAZolin SODIUM 1 GM VIAL ONE ×3 (00:18→17:13)
[2020-05-07] MEDS: CEFAZOLIN 1 GM in DEXTROSE 5%-WATER - 50 ML IVPB SCH ×3 (01:14→18:01)
[2020-05-07] MEDS ORDERED: PT OWN MED DRAWER 7, Y5N ONE (09:32)
[2020-05-07] MEDS: ASPIRIN COATED 81 MG TABLET.EC PO SCH (09:35)
[2020-05-07] MEDS: FUROSEMIDE 40 MG TABLET (FP) PO SCH (09:35)
[2020-05-07] MEDS: VERAPAMIL HCL 120 MG TABLET PO SCH ×2 (09:36→22:05)
[2020-05-07] MEDS: AZITHROMYCIN 500 MG TABLET PO SCH (09:36)
--- NOTE | 2020-05-07 12:49 | PN ---
Progress Note, Physician Chief Complaint: weakness History of Present Illness: denies confusion,palpitations, sob, cp - Current Medication List Current Medications: Active Medications Aspirin (Ecotrin -) 81 mg PO DAILY [facility] Last Admin: 05/07/20 09:35 Dose: 81 mg Documented by: Furosemide (Lasix -) 40 mg PO DAILY [facility] Last Admin: 05/07/20 09:35 Dose: 40 mg Documented by: Haloperidol (Haldol Injection (Fast Acting) -) 0.5 mg IM Q4H PRN PRN Reason: AGITATION Cefazolin Sodium 1 gm/ (Dextrose) 50 mls @ 100 mls/hr IVPB Q8H-IV [facility] Last Admin: 05/07/20 09:34 Dose: 100 mls/hr Documented by: Metoprolol Succinate (Toprol Xl -) 50 mg PO DAILY [facility] Last Admin: 05/07/20 09:36 Dose: 50 mg Documented by: Verapamil HCl (Verapamil Hcl) 120 mg PO BID [facility] Last Admin: 05/07/20 09:36 Dose: 120 mg Documented by: - Objective Vital Signs: Vital Signs Temperature 98.6 F 05/07/20 09:26 Pulse Rate 108 H 05/07/20 09:26 Respiratory Rate 18 05/07/20 09:26 Blood Pressure 132/75 05/07/20 09:26 O2 Sat by Pulse Oximetry (%) 96 05/07/20 09:26 Constitutional: Yes: Well Nourished, No Distress, Calm Cardiovascular: Yes: Pulse Irregular, JVD, S1, S2. No: Murmur Respiratory: Yes: Regular. No: Accessory Muscle Use Extremities: No: Cold Edema: No Neurological: Yes: Alert, Oriented Psychiatric: No: Agitated Labs: CBC, BMP 05/04/20 20:49 05/04/20 18:00 INR, PTT INR 1.06 (0.83-1.09) 05/04/20 18:00 Assessment/Plan Echo: EF 50-55%. nl RV. severe LAE, mild HERMINIO. mod AI/MR/TR. RVSP 30-40. severely dilated IVC tele: AF better controlled, mostly 60s-110s with several peaks to 120s IMP: Suspected PNA (R hilar and base increased markings, no effusion)--presented with lethargy, weakness New Onset AF w/ RVR History of intracranial hemorrhage REC: 1. Rate control: did not respond to diltiazem 30mg, did well with metopr succina te 50 qd. on verapamil po now as well (home med?)--continue. monitor telemetry-- if continues to spike rate to 120s, would add 25mg metopr succinate in PM 2. 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 This, plus frailty, makes risks of AC > benefits. ASA only 3. Treatment of suspected PNA as per primary team: cultures pending, started on Ceftriaxone/ Azithro 4. BNP 5000, dilated IVC on echo, mild pulm HTN with moderate AI/MR/TR. JVD on e xam--suspect component of HFpEF here. continue lasix 40 po qd
--- NOTE | 2020-05-07 14:18 | PN ---
Progress Note, Physician Chief Complaint: More alert and talking - Current Medication List Current Medications: Active Medications Aspirin (Ecotrin -) 81 mg PO DAILY [facility] Last Admin: 05/07/20 09:35 Dose: 81 mg Documented by: Furosemide (Lasix -) 40 mg PO DAILY [facility] Last Admin: 05/07/20 09:35 Dose: 40 mg Documented by: Haloperidol (Haldol Injection (Fast Acting) -) 0.5 mg IM Q4H PRN PRN Reason: AGITATION Cefazolin Sodium 1 gm/ (Dextrose) 50 mls @ 100 mls/hr IVPB Q8H-IV [facility] Last Admin: 05/07/20 09:34 Dose: 100 mls/hr Documented by: Metoprolol Succinate (Toprol Xl -) 50 mg PO DAILY [facility] Last Admin: 05/07/20 09:36 Dose: 50 mg Documented by: Verapamil HCl (Verapamil Hcl) 120 mg PO BID [facility] Last Admin: 05/07/20 09:36 Dose: 120 mg Documented by: - Objective Vital Signs: Vital Signs Temperature 98.6 F 05/07/20 09:26 Pulse Rate 108 H 05/07/20 09:26 Respiratory Rate 18 05/07/20 09:26 Blood Pressure 132/75 05/07/20 09:26 O2 Sat by Pulse Oximetry (%) 96 05/07/20 09:26 Constitutional: Yes: Calm Eyes: Yes: WNL HENT: Yes: WNL Neck: Yes: WNL Cardiovascular: Yes: Regular Rate and Rhythm Respiratory: Yes: Regular Gastrointestinal: Yes: WNL ...Rectal Exam: Yes: Deferred Genitourinary: Yes: WNL Musculoskeletal: Yes: Muscle Weakness Edema: No Neurological: Yes: Alert Labs: CBC, BMP 05/04/20 20:49 05/04/20 18:00 INR, PTT INR 1.06 (0.83-1.09) 05/04/20 18:00 Assessment/Plan Heart rate better, still in afib Plan rpt Xray chest
[2020-05-08] MEDS ORDERED: ceFAZolin SODIUM 1 GM VIAL ONE ×2 (02:13→08:55)
[2020-05-08] MEDS ORDERED: DEXTROSE 5%-WATER - 50 ML IVPB ONE ×2 (02:13→08:55)
[2020-05-08] MEDS: CEFAZOLIN 1 GM in DEXTROSE 5%-WATER - 50 ML IVPB SCH ×2 (02:19→09:01)
[2020-05-08 08:03] LABS: BLOOD UREA NITROGEN 28.2 mg/dL (7-18); CALCIUM 8.7 mg/dL (8.5-10.1); POTASSIUM 4.1 mmol/L (3.5-5.1)
[2020-05-08] MEDS ORDERED: PT OWN MED DRAWER 7, Y5N ONE ×2 (08:55→21:54)
[2020-05-08] MEDS: FUROSEMIDE 40 MG TABLET (FP) PO SCH (09:01)
[2020-05-08] MEDS: ASPIRIN COATED 81 MG TABLET.EC PO SCH (09:01)
--- NOTE | 2020-05-08 09:39 | PN ---
Progress Note, Physician Chief Complaint: No new complaints History of Present Illness: Admitted with pneumonia RLL ,no covid ,confused - Current Medication List Current Medications: Active Medications Aspirin (Ecotrin -) 81 mg PO DAILY [facility] Last Admin: 05/08/20 09:01 Dose: 81 mg Documented by: Furosemide (Lasix -) 40 mg PO DAILY [facility] Last Admin: 05/08/20 09:01 Dose: 40 mg Documented by: Haloperidol (Haldol Injection (Fast Acting) -) 0.5 mg IM Q4H PRN PRN Reason: AGITATION Cefazolin Sodium 1 gm/ (Dextrose) 50 mls @ 100 mls/hr IVPB Q8H-IV [facility] Last Admin: 05/08/20 09:01 Dose: 100 mls/hr Documented by: Metoprolol Succinate (Toprol Xl -) 50 mg PO DAILY [facility] Last Admin: 05/08/20 09:01 Dose: 50 mg Documented by: Verapamil HCl (Verapamil Hcl) 120 mg PO BID [facility] Last Admin: 05/07/20 22:05 Dose: 120 mg Documented by: - Objective Vital Signs: Vital Signs Temperature 98.1 F 05/08/20 07:59 Pulse Rate 97 H 05/08/20 07:59 Respiratory Rate 18 05/08/20 08:32 Blood Pressure 114/53 L 05/08/20 07:59 O2 Sat by Pulse Oximetry (%) 98 05/08/20 08:32 Constitutional: Yes: No Distress Eyes: Yes: WNL HENT: Yes: WNL Neck: Yes: WNL Cardiovascular: Yes: Pulse Irregular Gastrointestinal: Yes: WNL ...Rectal Exam: Yes: WNL Genitourinary: Yes: WNL Edema: No Integumentary: Yes: WNL Neurological: Yes: Confusion Labs: CBC, BMP 05/04/20 20:49 05/08/20 06:46 INR, PTT INR 1.06 (0.83-1.09) 05/04/20 18:00 Assessment/Plan Rpt chest Xray no changes Plan neuro consult Dr Joiner
[2020-05-08] MEDS: VERAPAMIL HCL 120 MG TABLET PO SCH ×2 (10:29→21:55)
--- NOTE | 2020-05-08 11:23 | PN ---
Progress Note (short form) - Note Progress Note: Chief Complaint: weakness History of Present Illness: denies palpitations, sob, cp dizzy Current Medications Generic Name Dose Route Start Last Admin Trade Name Sae PRN Reason Stop Dose Admin Aspirin 81 mg 05/05/20 10:00 05/08/20 09:01 Ecotrin - PO 81 mg DAILY [facility] Administration Furosemide 40 mg 05/06/20 14:00 05/08/20 09:01 Lasix - PO 40 mg DAILY [facility] Administration Haloperidol 0.5 mg 05/06/20 09:16 Haldol Injection (Fast Acting) - IM Q4H PRN AGITATION Cefazolin Sodium 1 gm/ 50 mls @ 100 mls/hr 05/05/20 12:20 05/08/20 09:01 Dextrose IVPB 100 mls/hr Q8H-IV [facility] Administration Metoprolol Succinate 50 mg 05/06/20 10:00 05/08/20 09:01 Toprol Xl - PO 50 mg DAILY [facility] Administration Verapamil HCl 120 mg 05/06/20 10:00 05/08/20 10:29 Verapamil Hcl PO 120 mg BID [facility] Administration Vital Signs Period Temp Pulse Resp BP Sys/Bedoya Pulse Ox Last 24 Hr 97.7 F-98.6 F 78-104 18-20 92-126/47-92 97-98 Constitutional: Yes: Well Nourished, No Distress, Calm Cardiovascular: Yes: Pulse Irregular, JVD, S1, S2. No: Murmur Respiratory: Yes: Regular. No: Accessory Muscle Use Extremities: No: Cold Edema: No Neurological: Yes: Alert, Oriented Psychiatric: No: Agitated no jaundice diaphoresis Labs: CBC, BMP 05/04/20 20:49 05/08/20 06:46 Assessment/Plan Echo: EF 50-55%. nl RV. severe LAE, mild HERMINIO. mod AI/MR/TR. RVSP 30-40. severely dilated IVC tele: AF better controlled, mostly 60s-110s IMP: Suspected PNA (R hilar and base increased markings, no effusion)--presented with lethargy, weakness New Onset AF w/ RVR History of intracranial hemorrhage REC: 1. Rate control: did not respond to diltiazem 30mg, did well with metopr succin ate 50 qd. on verapamil po now as well (home med?)--continue. monitor telemetry--if continues to spike rate to 120s, would add 25mg metopr succinate in PM 2. 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 This, plus frailty, makes risks of AC > benefits. ASA only 3. Treatment of suspected PNA as per primary team: cultures pending, started on Ceftriaxone/ Azithro 4. BNP 5000, dilated IVC on echo, mild pulm HTN with moderate AI/MR/TR. JVD on exam--suspect component of HFpEF here. continue lasix 40 po qd
--- NOTE | 2020-05-08 21:21 | CON.NEURO ---
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 Per patient's mother, the patient fell last year and had a brain bleed (treated at [facility] brain trauma unit and went to [facility] for therapy) and has since then had mental statues issues. At baseline patient is alert and oriented x4. Per mother, patient does not normally sleep during the day but spent all day Friday sleeping and has been feeling week along with decrease in appetite - symptoms getting worse. Earlier today, the patient was found lying on the floor - did not fall or pass out but this prompted granddaughter to call EMS. Patient does not use a walker but mother said patient was "wobbly" yesterday. Patient denies: hitting head today, fever, chills, sweating, nausea, vomiting, neck pain, SOB, coughing, wheezing, chest pain, palpitations, back pain, abdominal pain, any urinary issues. -As per nursing staff the patient has had some cognitive/memory difficulty, admitted with uti/chf and since admission has had confusion, waxing/waning mental status. CT head 05/04 without acute abn. - Past Medical History CLINICAL WRITER: Yes: Other (Prior intracranial hemorrhage) Pulmonary: No: Asthma, Bronchitis, Cancer, COPD, O2 Dependent, Pneumonia, Previously Intubated, Pulmonary Embolus, Pulmonary Fibrosis, Sleep Apnea, Other Gastrointestinal: No: Ascites, Cancer, Constipation, Crohn's Disease, Diver ticulitis, Diverticulosis, Esophageal Varices, Gastritis, GERD, GI Bleed, Hemorrhoids, Hiatal Hernia, Inflamatory Bowel Disease, Irritable Bowel Disease, Pancreatitis, Peptic Ulcer Disease, Ulcerative Colitis, Other Hepatobiliary: No: Cirrhosis, Cholelithiasis, Cholecystitis, Choledocholithiasis, Hepatitis A, Hepatitis B, Hepatitis C, Other Renal/: No: Renal Failure, Renal Inusuff, BPH, Cancer, Hematuria, Hemodialysis, Neurogenic Bladder, Renal Calculi, UTI, Other Infectious Disease: Yes: Other (UTI) Psych: No: Addictions, Anxiety, Bipolar, Depression, Panic, Psychosis, Schizophrenia, Other Musculoskeletal: No: Bursitis, Chronic low back pain, Hemiparesis, Hemiplegia, Osteoarthritis, Paraplegia, Other Rheumatology: No: Fibromyalgia, Gout, Lupus, Rheumatoid Arthritis, Sarcoidosis, Vasculitis, Other ENT: No: Allergic Rhinitis, Sinusitis, Other Endocrine: No: [place]'s Disease, Marisabel's Disease, Diabetes Insipidus, Diabetes Mellitus, Hyperparathyroidism, Hyperthyroidism, Hypothyroidism, Osteopenia, SIADH, Other Dermatology: No: Basal Cell, Cellulitis, Eczema, Melanoma, Psoriasis, Squamous Cell, Other - Past Surgical History Past Surgical History: No: None, AAA Repair, AICD, Amputation, Appendectomy, Arthrosocopy, AV Fistula/Graft, Bariatric Surgery, Breast Biopsy, Bypass, CABG, Carotid Endarterectomy, Cataract Removal, Cholecystectomy, Colectomy, Colonoscopy, Colostomy, Craniotomy, , Cystectomy, Hernia Repair, Hysterectomy, Ileal Conduit, Ileosotomy, Joint Replacement, Kidney Transplant, Laminectomy, Liver Transplant, Mastectomy, Nephrectomy, Oopherectomy, Orchiectomy, Permanent Pacemaker, Prostatectomy, Splenectomy, Stent, Thoracotomy, TURP, Tonsillectomy, Tubal Ligation, Upper Endoscopy, Valve Re placement, Vasectomy, Vein Stripping/Ligation - Alcohol/Substance Use Hx Alcohol Use: Yes (1 GLASS WINE DAILY) - Smoking History Smoking history: Former smoker Have you smoked in the past 12 months: No If you are a former smoker, when did you quit?: 1952 - Social History History of Recent Travel: No Home Medications - Allergies Allergies/Adverse Reactions: Allergies Allergy/AdvReac Type Severity Reaction Status Date / Time No Known Allergies Allergy Verified 05/05/20 10:40 - Home Medications Home Medications: Ambulatory Orders Verapamil HCl [Verapamil ER] 180 mg PO DAILY 11/11/17 Alendronate Na [Fosamax (Weekly)] 70 mg PO Q7D 11/18/17 Meloxicam [Mobic (Nf) -] 0 mg PO DAILY PRN 05/04/20 Physical Exam-Neuro Vital Signs: Vital Signs Temperature 98.2 F 05/08/20 18:00 Pulse Rate 82 05/08/20 18:00 Respiratory Rate 18 05/08/20 18:00 Blood Pressure 106/50 L 05/08/20 18:00 O2 Sat by Pulse Oximetry (%) 98 05/08/20 08:32 Labs: CBC, BMP 05/04/20 20:49 05/08/20 06:46 INR, PTT INR 1.06 (0.83-1.09) 05/04/20 18:00 - Neuro Exam Level Of Consciousness: Yes: Alert, Oriented to Person Eyes: Yes: SARWAT Speech: Other (follows simple commands?? sensory aphasia) Mini Mental Exam: Impaired attention/concentration/STM-pt. is inattentive Cranial Nerves II-XII Intact: No (+ bialt hearing deficit?? sensaorineural hearing deficit) Gag: Present DTR's: 0 Left Achilles, 0 Right Achilles, 1+ Left Bicep, 1+ Right Bicep, 1+ Left Tricep, 1+ Right Tricep, 1+ Left Brachioradialis, 1+ Right Brachioradialis Babinski: Present (+bilat upgoing toes) Response to light touch: Normal (Unable to reliably test other modalities.) Coordination: Normal: Finger to Nose Motor Strength: 4/5: Left Leg, Right Leg (limited effort), 5/5: Left Arm, Right Arm Gait: Other (Not tested) Assessment/Plan Pt. with delirium(encephalopathy) that appears to be improving, likely 2/2 uti?? mild hypoxia(Chf) in setting of mild cognitive deficits. Rx. of underlying conditions underway, if she becomes agitated can use Fluphenazine 1mg q8hrs prn. No further neurologic intervention. Thank you, Xena Bond MD
[2020-05-09] MEDS ORDERED: PT OWN MED DRAWER 7, Y5N ONE ×2 (08:57→22:17)
[2020-05-09] MEDS: ASPIRIN COATED 81 MG TABLET.EC PO SCH (09:07)
[2020-05-09] MEDS: FUROSEMIDE 40 MG TABLET (FP) PO SCH (09:07)
[2020-05-09] MEDS: VERAPAMIL HCL 120 MG TABLET PO SCH ×2 (09:08→22:21)
--- NOTE | 2020-05-09 09:24 | PN ---
Progress Note, Physician Chief Complaint: No new complaints History of Present Illness: azalea Copeland neuro consult appreciated - Current Medication List Current Medications: Active Medications Aspirin (Ecotrin -) 81 mg PO DAILY [facility] Last Admin: 05/09/20 09:07 Dose: 81 mg Documented by: Furosemide (Lasix -) 40 mg PO DAILY [facility] Last Admin: 05/09/20 09:07 Dose: 40 mg Documented by: Haloperidol (Haldol Injection (Fast Acting) -) 0.5 mg IM Q4H PRN PRN Reason: AGITATION Metoprolol Succinate (Toprol Xl -) 50 mg PO DAILY [facility] Last Admin: 05/09/20 09:07 Dose: 50 mg Documented by: Verapamil HCl (Verapamil Hcl) 120 mg PO BID [facility] Last Admin: 05/09/20 09:08 Dose: 120 mg Documented by: - Objective Vital Signs: Vital Signs Temperature 98.1 F 05/09/20 06:00 Pulse Rate 97 H 05/09/20 06:00 Respiratory Rate 16 05/09/20 06:00 Blood Pressure 121/66 05/09/20 06:00 O2 Sat by Pulse Oximetry (%) 98 05/09/20 06:00 Constitutional: Yes: Anxious Eyes: Yes: WNL HENT: Yes: WNL Neck: Yes: WNL Cardiovascular: Yes: Regular Rate and Rhythm Respiratory: Yes: Regular Gastrointestinal: Yes: Normal Bowel Sounds ...Rectal Exam: Yes: Deferred Genitourinary: Yes: WNL Edema: No Labs: CBC, BMP 05/04/20 20:49 05/08/20 06:46 INR, PTT INR 1.06 (0.83-1.09) 05/04/20 18:00 Assessment/Plan Vit B12 and Vit D WNL Will discuss with social media marketing specialist regarding help at home after discharge
--- NOTE | 2020-05-09 13:00 | PN ---
Progress Note (short form) - Note Progress Note: Chief Complaint: weakness History of Present Illness: denies palpitations, sob, cp dizzy Current Medications Generic Name Dose Route Start Last Admin Trade Name Sae PRN Reason Stop Dose Admin Aspirin 81 mg 05/05/20 10:00 05/09/20 09:07 Ecotrin - PO 81 mg DAILY MAC Administration Furosemide 40 mg 05/06/20 14:00 05/09/20 09:07 Lasix - PO 40 mg DAILY MAC Administration Haloperidol 0.5 mg 05/06/20 09:16 Haldol Injection (Fast Acting) - IM Q4H PRN AGITATION Metoprolol Succinate 50 mg 05/06/20 10:00 05/09/20 09:07 Toprol Xl - PO 50 mg DAILY MAC Administration Verapamil HCl 120 mg 05/06/20 10:00 05/09/20 09:08 Verapamil Hcl PO 120 mg BID MAC Administration Vital Signs Period Temp Pulse Resp BP Sys/Bedoya Pulse Ox Last 24 Hr 97.8 F-98.7 F 67-105 16-20 106-122/50-74 97-99 Constitutional: Yes: Well Nourished, No Distress, Calm Cardiovascular: Yes: Pulse Irregular, JVD, S1, S2. No: Murmur Respiratory: Yes: Regular. No: Accessory Muscle Use Extremities: No: Cold Edema: No Neurological: Yes: Alert, Oriented Psychiatric: No: Agitated no jaundice diaphoresis Assessment/Plan Echo: EF 50-55%. nl RV. severe LAE, mild HERMINIO. mod AI/MR/TR. RVSP 30-40. severely dilated IVC tele: AF rate ok, 3 bt NSVT IMP: Suspected PNA (R hilar and base increased markings, no effusion)--presented with lethargy, weakness New Onset AF w/ RVR History of intracranial hemorrhage REC: 1. Rate control: did not respond to diltiazem 30mg, did well with metopr succinate 50 qd. on verapamil po now as well (home med?)--continue. monitor telemetry 2. 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 This, plus frailty, makes risks of AC > benefits. ASA only 3. Treatment of suspected PNA as per primary team 4. BNP 5000, dilated IVC on echo, mild pulm HTN with moderate AI/MR/TR. JVD on exam--suspect component of HFpEF here. continue lasix 40 po qd
[2020-05-10] MEDS ORDERED: PT OWN MED DRAWER 7, Y5N ONE ×5 (10:02→21:09)
[2020-05-10] MEDS: VERAPAMIL HCL 120 MG TABLET PO SCH ×2 (10:06→21:42)
[2020-05-10] MEDS: FUROSEMIDE 40 MG TABLET (FP) PO SCH (10:06)
[2020-05-10] MEDS: ASPIRIN COATED 81 MG TABLET.EC PO SCH (10:06)
--- NOTE | 2020-05-10 12:23 | PN ---
Progress Note (short form) - Note Progress Note: Chief Complaint: weakness History of Present Illness: confused, unable to obtain hpi or ros due to mental status Current Medications Generic Name Dose Route Start Last Admin Trade Name Sae PRN Reason Stop Dose Admin Aspirin 81 mg 05/05/20 10:00 05/10/20 10:06 Ecotrin - PO 81 mg DAILY MAC Administration Furosemide 40 mg 05/06/20 14:00 05/10/20 10:06 Lasix - PO 40 mg DAILY MAC Administration Haloperidol 0.5 mg 05/06/20 09:16 Haldol Injection (Fast Acting) - IM Q4H PRN AGITATION Metoprolol Succinate 50 mg 05/06/20 10:00 05/10/20 10:06 Toprol Xl - PO 50 mg DAILY MAC Administration Verapamil HCl 120 mg 05/06/20 10:00 05/10/20 10:06 Verapamil Hcl PO 120 mg BID MAC Administration Vital Signs Period Temp Pulse Resp BP Sys/Bedoya Pulse Ox Last 24 Hr 97.7 F-98.5 F 64-120 16-20 103-126/59-90 97-98 Constitutional: Yes: Well Nourished, No Distress, Calm Cardiovascular: Yes: Pulse Irregular, JVD, S1, S2. No: Murmur Respiratory: Yes: Regular. No: Accessory Muscle Use Extremities: No: Cold Edema: No Neurological: Yes: Alert, Oriented Psychiatric: No: Agitated no jaundice diaphoresis Assessment/Plan Echo: EF 50-55%. nl RV. severe LAE, mild HERMINIO. mod AI/MR/TR. RVSP 30-40. severely dilated IVC tele: AF episodes RVR 150s last night and this morning IMP: Suspected PNA (R hilar and base increased markings, no effusion)--presented with lethargy, weakness New Onset AF w/ RVR History of intracranial hemorrhage REC: 1. Rate control: did not respond to diltiazem 30mg, was controlled with metoprol succinate 50 qd and verapamil, with episodes RVR overnight and this morning. inc metoprolol to 75 mg daily 2. 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 This, plus frailty, makes risks of AC > benefits. ASA only 3. Treatment of suspected PNA as per primary team 4. BNP 5000, dilated IVC on echo, mild pulm HTN with moderate AI/MR/TR. JVD on exam--suspect component of HFpEF here. continue lasix 40 po qd
[2020-05-10] MEDS ORDERED: metoPROLOL SUCCINATE 25 MG TAB.SR.24H (FP) PO ONE ×2 (12:30→19:00)
[2020-05-10] MEDS ORDERED: AZITHROMYCIN 500 MG TABLET PO SCH ×2 (17:45→18:30)
[2020-05-10] MEDS ORDERED: AZITHROMYCIN 250 MG TABLET PO SCH (17:45)
[2020-05-10] MEDS ORDERED: CEFAZOLIN 1 GM/D5W 1 GM/50 ML BAG IVPB SCH (18:00)
--- NOTE | 2020-05-10 18:58 | PN ---
Progress Note, Physician Chief Complaint: Feels gretchen History of Present Illness: Blood culture grew staf homins sensitive to septra - Current Medication List Current Medications: Active Medications Aspirin (Ecotrin -) 81 mg PO DAILY [facility] Last Admin: 05/10/20 10:06 Dose: 81 mg Documented by: Azithromycin (Zithromax -) 500 mg PO DAILY [facility] Stop: 05/12/20 10:01 Furosemide (Lasix -) 40 mg PO DAILY [facility] Last Admin: 05/10/20 10:06 Dose: 40 mg Documented by: Haloperidol (Haldol Injection (Fast Acting) -) 0.5 mg IM Q4H PRN PRN Reason: AGITATION Cefazolin Sodium 1 gm/ (Dextrose) 50 mls @ 100 mls/hr IVPB Q8H-IV [facility] Stop: 05/13/20 10:29 Metoprolol Succinate (Toprol Xl -) 75 mg PO DAILY [facility] Last Admin: 05/10/20 12:41 Dose: Not Given Documented by: Metoprolol Succinate (Toprol Xl -) 25 mg PO ONCE ONE Stop: 05/10/20 19:01 Verapamil HCl (Verapamil Hcl) 120 mg PO BID [facility] Last Admin: 05/10/20 10:06 Dose: 120 mg Documented by: - Objective Vital Signs: Vital Signs Temperature 98.2 F 05/10/20 18:00 Pulse Rate 95 H 05/10/20 18:00 Respiratory Rate 17 05/10/20 18:00 Blood Pressure 125/55 L 05/10/20 18:00 O2 Sat by Pulse Oximetry (%) 97 05/10/20 18:00 Constitutional: Yes: No Distress Eyes: Yes: WNL HENT: Yes: WNL Neck: Yes: WNL Cardiovascular: Yes: Regular Rate and Rhythm, Pulse Irregular Genitourinary: Yes: WNL Musculoskeletal: Yes: Back Pain Integumentary: Yes: WNL Labs: CBC, BMP 05/04/20 20:49 05/08/20 06:46 INR, PTT INR 1.06 (0.83-1.09) 05/04/20 18:00 Assessment/Plan DC azithomycin Start septra
[2020-05-10] MEDS: CEFAZOLIN 1 GM in DEXTROSE 5%-WATER - 50 ML IVPB SCH (20:05)
[2020-05-10] MEDS: SULFAMETHOXAZOLE/TRIMETHOPRIM 800MG/160MG D.S. TABLET PO SCH (21:42)
[2020-05-11] MEDS ORDERED: ceFAZolin SODIUM 1 GM VIAL ONE ×3 (00:38→18:14)
[2020-05-11] MEDS ORDERED: DEXTROSE 5%-WATER - 50 ML IVPB ONE ×3 (00:38→18:14)
[2020-05-11] MEDS: CEFAZOLIN 1 GM in DEXTROSE 5%-WATER - 50 ML IVPB SCH ×3 (01:02→18:40)
[2020-05-11 06:42] LABS: HEMATOCRIT 30.5 % (32.4-45.2); HEMOGLOBIN 10.5 GM/dL (10.7-15.3); MCH 30.3 pg (25.7-33.7); MCHC 34.3 g/dl (32.0-36.0); MEAN CELL VOLUME 88.4 fl (80-96); MEAN PLT VOLUME 7.8 fl (7.5-11.1); PLATELET COUNT 234 K/MM3 (134-434); RBC 3.46 M/mm3 (3.60-5.2); RDW 14.6 % (11.6-15.6); WHITE BLOOD COUNT 5.4 K/mm3 (4.0-10.0)
[2020-05-11 07:16] LABS: BILIRUBIN,TOTAL 0.4 mg/dL (0.2-1); BLOOD UREA NITROGEN 37.8 mg/dL (7-18); CALCIUM 8.7 mg/dL (8.5-10.1); CREATININE 1.3 mg/dL (0.55-1.3); POTASSIUM 3.9 mmol/L (3.5-5.1); TOT PROT 5.8 g/dl (6.4-8.2)
[2020-05-11] MEDS ORDERED: PT OWN MED DRAWER 7, Y5N ONE ×2 (09:14→21:50)
[2020-05-11] MEDS: SULFAMETHOXAZOLE/TRIMETHOPRIM 800MG/160MG D.S. TABLET PO SCH ×2 (09:20→21:54)
[2020-05-11] MEDS: FUROSEMIDE 40 MG TABLET (FP) PO SCH (09:21)
[2020-05-11] MEDS: VERAPAMIL HCL 120 MG TABLET PO SCH ×2 (09:21→21:55)
[2020-05-11] MEDS: ASPIRIN COATED 81 MG TABLET.EC PO SCH (09:21)
--- NOTE | 2020-05-11 09:22 | PN ---
Progress Note, Physician Chief Complaint: No new complaints - Current Medication List Current Medications: Active Medications Aspirin (Ecotrin -) 81 mg PO DAILY [facility] Last Admin: 05/10/20 10:06 Dose: 81 mg Documented by: Furosemide (Lasix -) 40 mg PO DAILY [facility] Last Admin: 05/10/20 10:06 Dose: 40 mg Documented by: Haloperidol (Haldol Injection (Fast Acting) -) 0.5 mg IM Q4H PRN PRN Reason: AGITATION Cefazolin Sodium 1 gm/ (Dextrose) 50 mls @ 100 mls/hr IVPB Q8H-IV [facility] Stop: 05/13/20 10:29 Last Admin: 05/11/20 01:02 Dose: 100 mls/hr Documented by: Metoprolol Succinate (Toprol Xl -) 75 mg PO DAILY [facility] Last Admin: 05/10/20 12:41 Dose: Not Given Documented by: Trimethoprim/Sulfamethoxazole (Bactrim Ds -) 1 each PO BID [facility] Last Admin: 05/10/20 21:42 Dose: 1 each Documented by: Verapamil HCl (Verapamil Hcl) 120 mg PO BID [facility] Last Admin: 05/10/20 21:42 Dose: 120 mg Documented by: - Objective Vital Signs: Vital Signs Temperature 98.1 F 05/11/20 09:10 Pulse Rate 110 H 05/11/20 09:10 Respiratory Rate 16 05/11/20 09:10 Blood Pressure 118/79 05/11/20 09:10 O2 Sat by Pulse Oximetry (%) 100 05/11/20 09:10 Constitutional: Yes: No Distress Eyes: Yes: WNL HENT: Yes: WNL Neck: Yes: WNL Cardiovascular: Yes: Pulse Irregular Respiratory: Yes: WNL ...Rectal Exam: Yes: Deferred Genitourinary: Yes: WNL Edema: No Neurological: Yes: Oriented Labs: CBC, BMP 05/11/20 06:21 05/11/20 06:21 INR, PTT INR 1.06 (0.83-1.09) 05/04/20 18:00 Assessment/Plan Rpt Xray chest
[2020-05-11] MEDS ORDERED: AZITHROMYCIN 500 MG TABLET PO SCH (10:00)
[2020-05-11] MEDS ORDERED: metoPROLOL SUCCINATE 25 MG TAB.SR.24H (FP) PO ONE ×2 (11:07→20:15)
--- NOTE | 2020-05-11 11:10 | PN ---
Progress Note (short form) - Note Progress Note: Chief Complaint: weakness History of Present Illness: confused, unable to obtain hpi or ros due to mental status Current Medications Generic Name Dose Route Start Last Admin Trade Name Sae PRN Reason Stop Dose Admin Aspirin 81 mg 05/05/20 10:00 05/11/20 09:21 Ecotrin - PO 81 mg DAILY MAC Administration Furosemide 40 mg 05/06/20 14:00 05/11/20 09:21 Lasix - PO 40 mg DAILY MAC Administration Haloperidol 0.5 mg 05/06/20 09:16 Haldol Injection (Fast Acting) - IM Q4H PRN AGITATION Cefazolin Sodium 1 gm/ 50 mls @ 100 mls/hr 05/10/20 18:00 05/11/20 09:20 Dextrose IVPB 05/13/20 10:29 100 mls/hr Q8H-IV MAC Administration Metoprolol Succinate 100 mg 05/12/20 10:00 Toprol Xl - PO DAILY MAC Metoprolol Succinate 25 mg 05/11/20 11:07 Toprol Xl - PO 05/11/20 11:08 ONCE ONE Trimethoprim/Sulfamethoxazole 1 each 05/10/20 22:00 05/11/20 09:20 Bactrim Ds - PO 1 each BID MAC Administration Verapamil HCl 120 mg 05/06/20 10:00 05/11/20 09:21 Verapamil Hcl PO 120 mg BID MAC Administration Vital Signs Period Temp Pulse Resp BP Sys/Bedoya Pulse Ox Last 24 Hr 98.1 F-99.0 F 54-125 16-20 98-125/51-80 97-100 Constitutional: Yes: Well Nourished, No Distress, Calm Cardiovascular: Yes: Pulse Irregular, JVD, S1, S2. No: Murmur Respiratory: Yes: Regular. No: Accessory Muscle Use Extremities: No: Cold Edema: No Neurological: Yes: Alert, Oriented Psychiatric: No: Agitated no jaundice diaphoresis CBC, BMP 05/11/20 06:21 05/11/20 06:21 Assessment/Plan Echo: EF 50-55%. nl RV. severe LAE, mild HERMINIO. mod AI/MR/TR. RVSP 30-40. severely dilated IVC tele: AF, mostly low 100s, episodes RVR at times IMP: Suspected PNA (R hilar and base increased markings, no effusion)--presented with lethargy, weakness New Onset AF w/ RVR History of intracranial hemorrhage REC: 1. Rate control: did not respond to diltiazem 30mg, was changed to metoprol succinate 50 qd and verapamil, but still with episodes RVR so have been increasing toprol, will increase further to 100 qd now. 2. 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 This, plus frailty, makes risks of AC > benefits. ASA only 3. Treatment of suspected PNA as per primary team 4. BNP 5000, dilated IVC on echo, mild pulm HTN with moderate AI/MR/TR. JVD on exam--suspect component of HFpEF here. continue lasix 40 po qd
[2020-05-12] MEDS ORDERED: ceFAZolin SODIUM 1 GM VIAL ONE ×2 (01:03→08:18)
[2020-05-12] MEDS ORDERED: DEXTROSE 5%-WATER - 50 ML IVPB ONE ×2 (01:03→08:18)
[2020-05-12] MEDS: CEFAZOLIN 1 GM in DEXTROSE 5%-WATER - 50 ML IVPB SCH ×2 (01:35→09:05)
--- NOTE | 2020-05-12 06:12 | PN ---
Progress Note, Physician Chief Complaint: sleeping but easily awakens No CP/SOB/Palps TELE: OFF TELE HR trend 70-100bpm History of Present Illness: AF Dementia CHF Nonsmoker - Current Medication List Current Medications: Active Medications Aspirin (Ecotrin -) 81 mg PO DAILY [facility] Last Admin: 05/11/20 09:21 Dose: 81 mg Documented by: Furosemide (Lasix -) 40 mg PO DAILY [facility] Last Admin: 05/11/20 09:21 Dose: 40 mg Documented by: Haloperidol (Haldol Injection (Fast Acting) -) 0.5 mg IM Q4H PRN PRN Reason: AGITATION Cefazolin Sodium 1 gm/ (Dextrose) 50 mls @ 100 mls/hr IVPB Q8H-IV [facility] Stop: 05/13/20 10:29 Last Admin: 05/12/20 01:35 Dose: 100 mls/hr Documented by: Metoprolol Succinate (Toprol Xl -) 100 mg PO DAILY [facility] Trimethoprim/Sulfamethoxazole (Bactrim Ds -) 1 each PO BID [facility] Last Admin: 05/11/20 21:54 Dose: 1 each Documented by: Verapamil HCl (Verapamil Hcl) 120 mg PO BID [facility] Last Admin: 05/11/20 21:55 Dose: 120 mg Documented by: - Objective Vital Signs: Vital Signs Temperature 97.6 F 05/12/20 02:22 Pulse Rate 76 05/12/20 02:22 Respiratory Rate 18 05/12/20 02:22 Blood Pressure 111/61 05/12/20 02:22 O2 Sat by Pulse Oximetry (%) 97 05/12/20 02:22 Constitutional: Yes: No Distress, Calm Eyes: Yes: Conjunctiva Clear Cardiovascular: Yes: Pulse Irregular Respiratory: Yes: CTA Bilaterally Gastrointestinal: Yes: Soft (nt) Edema: No Neurological: Yes: Confusion Labs: CBC, BMP 05/11/20 06:21 05/11/20 06:21 INR, PTT INR 1.06 (0.83-1.09) 05/04/20 18:00 Assessment/Plan Assessment/Plan Echo: EF 50-55%. nl RV. severe LAE, mild HERMINIO. mod AI/MR/TR. RVSP 30-40. severely dilated IVC tele: AF, mostly low 100s, episodes RVR at times IMP: Suspected PNA (R hilar and base increased markings, no effusion)--presented with lethargy, weakness New Onset AF w/ RVR History of intracranial hemorrhage REC: 1. Rate control: did not respond to diltiazem 30mg, was changed to metoprol succinate and verapamil 2. 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 This, plus frailty, makes risks of AC > benefits. ASA only 3. Treatment of suspected PNA as per primary team 4. BNP 5000, dilated IVC on echo, mild pulm HTN with moderate AI/MR/TR. JVD on exam--suspect component of chronic HFpEF- continue lasix; but due to rising BUN/creat will lower dose to 20mg daily
[2020-05-12] MEDS ORDERED: PT OWN MED DRAWER 7, Y5N ONE ×2 (08:17→08:55)
[2020-05-12] MEDS: VERAPAMIL HCL 120 MG TABLET PO SCH (09:04)
[2020-05-12] MEDS: FUROSEMIDE 40 MG TABLET (FP) PO SCH (09:04)
[2020-05-12] MEDS: SULFAMETHOXAZOLE/TRIMETHOPRIM 800MG/160MG D.S. TABLET PO SCH (09:04)
[2020-05-12] MEDS: ASPIRIN COATED 81 MG TABLET.EC PO SCH (09:04)
--- NOTE | 2020-05-12 09:17 | DS ---
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 Heart rate controlled with Verapamil,echo EF normal Constitutional: Yes: No Distress Eyes: Yes: WNL HENT: Yes: WNL Neck: Yes: WNL Cardiovascular: Yes: Pulse Irregular Respiratory: Yes: WNL Gastrointestinal: Yes: WNL ...Rectal Exam: Yes: Deferred Renal/: Yes: WNL Breast(s): Yes: WNL Musculoskeletal: Yes: Muscle Weakness Extremities: Yes: WNL Edema: No Neurological: Yes: Confusion Labs: CBC, BMP 05/11/20 06:21 05/11/20 06:21 Discharge Summary Problems reviewed: Yes Reason For Visit: NEW ONSET ATRIAL FIBRILLATION,PNEUMONIA Current Active Problems Dizziness (Acute) New onset a-fib (Acute) Weakness (Acute) Condition: Guarded - Instructions Referrals: Zee Purvis MD [Primary Care Provider] - - Home Medications Comprehensive Discharge Medication List: Ambulatory Orders Verapamil HCl [Verapamil ER] 180 mg PO DAILY 11/11/17 Alendronate Na [Fosamax (Weekly)] 70 mg PO Q7D 11/18/17 Meloxicam [Mobic (Nf) -] 0 mg PO DAILY PRN 05/04/20
[2020-05-12 13:59] VITALS: BP 109/63; PULSE 114; TEMP 97.8
[2020-05-13] MEDS ORDERED: FUROSEMIDE 20 MG TABLET (FP) PO SCH (10:00)
== END 2020-05-12 13:30 | disposition home health service (06) | DRG 308 ==
LOC: JER 17:32 → JERBED 20:53 → J4S 05-05 15:18
PROVIDERS: ADMIT Internal Medicine; ATTEND Internal Medicine
DX: I48.91 Unspecified atrial fibrillation (principal); J18.9 Pneumonia, unspecified organism; Z68.1 Body mass index [BMI] 19.9 or less, adult; I50.30 Unspecified diastolic (congestive) heart failure; N39.0 Urinary tract infection, site not specified; G93.40 Encephalopathy, unspecified; M81.0 Age-related osteoporosis without current pathological fracture; Z96.649 Presence of unspecified artificial hip joint; R63.0 Anorexia
CPT/HCPCS: 36415; 70450-TC; 71045-TC-FY; 72125-TC; 80048; 80053; 81003; 82306; 82550; 82607; 83605; 83735; 83880; 84443; 84484; 85025; 85027; 85610; 86850; 86900; 86901; 87040; 87086; 87186; 93005; 93010; 93306-TC; 97116-GP; 97161-GP; 99285-25; U0003